=== PATIENT | male | born 1935 | race Caucasian/White ===

== ENCOUNTER 2017-05-28 06:39 | Day surgery (SDC) | payer MEDICARE, OTHER ==
[~2017-05-28 06:39] MED LIST: Lactated Ringers 1,000 ML IV SCH; Lidocaine 1%/Sod Bicarbonate in NS 8.4% 1 ML Syringe PRN; Sodium Chloride 0.9% 10 ML Syringe FLUSH PRN
[2017-05-28] MEDS ORDERED: fentaNYL 100 MCG/2 ML SDV ONE (07:19)
[2017-05-28] MEDS ORDERED: Propofol 200 MG/20 ML SDV ONE (07:19)
[2017-05-28] MEDS ORDERED: Lidocaine 1% 4 ML ONE (07:19)
[2017-05-28] MEDS ORDERED: Bupivacaine 0.25% 10 ML SDV ONE (07:25)
[2017-05-28] MEDS ORDERED: Lidocaine 1% 30 ML SDV ONE (07:26)
--- NOTE | 2017-05-28 07:39 | PCM.PREANE ---
Preanesthetic Assessment - Anesthesia/Transfusion/Family Hx Anesthesia History: Prior Anesthesia Without Reaction Family History of Anesthesia Reaction: No Transfusion History: No Prior Transfusion(s) - Review of Systems General: No Symptoms Pulmonary: Shortness of Breath (not changed. ) Cardiovascular: No Symptoms Gastrointestinal: No Symptoms Neurological: No Symptoms, Other (possible stroke in past) Other: Reports: Thyroid Problems - Physical Assessment NPO Status Date: 05/27/17 NPO Status Time: 22:15 Pulse: 57 O2 Sat by Pulse Oximetry: 100 Respiratory Rate: 16 Blood Pressure: 159/67 Temperature: 97.2 F Height: 5 ft 11 in Weight: 76.204 kg ASA Class: 3 Mental Status: Alert & Oriented x3 Airway Class: Mallampati = 1 Dentition: Reports: Dentures (top) Thyro-Mental Finger Breadths: 3 Mouth Opening Finger Breadths: 3 ROM/Head Extension: Full Lungs: Clear to Auscultation, Normal Respiratory Effort Cardiovascular: Regular Rate, Regular Rhythm - Lab Values: Laboratory Last Values MRSA (PCR) Negative 05/26/17 14:45 - Allergies Allergies/Adverse Reactions: Allergies Allergy/AdvReac Type Severity Reaction Status Date / Time No Known Allergies Allergy Verified 06/02/16 20:06 - Blood Blood Available: No - Anesthesia Plan Pre-Op Medication Ordered: Beta Madi Beta Madi: Metoprolol Med Last Dose Date: 05/28/17 Med Last Dose Time: 05:15 - Acknowledgements Anesthesia Type Planned: MAC Pt an Appropriate Candidate for the Planned Anesthesia: Yes Alternatives and Risks of Anesthesia Discussed w Pt/Guardian: Yes Pt/Guardian Understands and Agrees with Anesthesia Plan: Yes PreAnesthesia Questionnaire HEENT History: Reports: Cataract, Hard of Hearing, Impaired Vision Other HEENT History: wears glasses, has hearing aids, dental implant, history of impacted cerumen Cardiovascular History: Reports: High Cholesterol, Hypertension, CT, Stents, Other (See Below) Other Cardiovascular History: chest pain, coronary atherosclerosis Respiratory History: Reports: SOB, Other (See Below) Other Respiratory History: bronchitis, cough Gastrointestinal History: Reports: GERD, Other (See Below) Other Gastrointestinal History: abdominal pain, esophageal ulcer, dehydration Genitourinary History: Reports: None RN LONG TERM CARE History: Reports: None Other Musculoskeletal History: R hip bursitis Neurological History: Reports: Headaches, Chronic, Other (See Below) Other Neuro History: restless leg syndrome Psychiatric History: Reports: None Endocrine/Metabolic History: Reports: Hypothyroidism Hematologic History: Reports: None Immunologic History: Reports: None Oncologic (Cancer) History: Reports: None Dermatologic History: Reports: Other (See Below) Other Dermatologic History: cellulitis and abcess of face, viral warts - Infectious Disease History Infectious Disease History: Reports: Chicken Pox, Measles - Past Surgical History Head Surgeries/Procedures: Reports: None HEENT Surgical History: Reports: Cataract Surgery, Oral Surgery Cardiovascular Surgical History: Reports: Other (See Below) Other Cardiovascular Surgeries/Procedures: stent place. patient does not know location GI Surgical History: Reports: Colonoscopy, EGD Female Surgical History: Reports: None Musculoskeletal Surgical History: Reports: Arthroscopic Knee, Other (See Below) (finger) Oncologic Surgical History: Reports: None - SUBSTANCE USE Smoking Status *Q: Former Smoker Tobacco Use Within Last Twelve Months: No Second Hand Smoke Exposure: No Days Per Week of Alcohol Use: 5 Number of Drinks Per Day: 1 Total Drinks Per Week: 5 Recreational Drug Use History: No - HOME MEDS Home Medications: Home Meds Aspirin 81 mg PO DAILY 04/13/16 [History] Levothyroxine 25 mcg PO ACBREAKFAST 04/13/16 [History] Metoprolol Tartrate [Lopressor] 25 mg PO BID 04/13/16 [History] Omeprazole 20 mg PO BID 04/13/16 [History] amLODIPine [Norvasc] 2.5 mg PO DAILY 04/13/16 [History] atorvaSTATin [Lipitor] 20 mg PO BEDTIME 04/13/16 [History] Arginine 500 mg PO DAILY 05/27/17 [History] Ascorbate Calcium/Bioflavonoid [Cate-C 500 MG] 1 tab PO DAILY 05/27/17 [History ] Beta-Carotene(A) w/C & E/Min [Prosight] 1 tab PO DAILY 05/27/17 [History] Calcium Carbonate/Vitamin D3 [Calcium 600 + Vit D 400 Softgl] 1 cap PO DAILY 12/12 [History] Sammi Sinus 1 tab PO TID 05/27/17 [History] Folic Acid 1 mg PO DAILY 05/27/17 [History] Indapamide 2.5 mg PO DAILY 05/27/17 [History] Losartan [Cozaar] 100 mg PO DAILY 05/27/17 [History] Multivitamin [Multivitamins] 1 tab PO DAILY 05/27/17 [History] [place]-3/DHA/Epa/Fish Oil [[place] 3 500 Softgel] 1 cap PO DAILY 05/27/17 [History] Potassium 99 mg PO DAILY 05/27/17 [History] [place] 160 mg PO DAILY 05/27/17 [History] Ubidecarenone [Coq-10] 200 mg PO DAILY 05/27/17 [History] Vitamin E 400 unit PO DAILY 05/27/17 [History] traMADol HCl [Ultram] 50 - 100 mg PO Q8H PRN #10 tablet 05/28/17 [Rx] - CURRENT (IN HOUSE) MEDS Current Meds: Current Medications Lactated Ringer's (Ringers, Lactated) 1,000 mls @ 125 mls/hr IV ASDIRECTED LISBETH Stop: 05/28/17 23:00 Lidocaine/Sodium Bicarbonate (Buffered Lidocaine 1% In Ns 8.4%) 0.25 ml .XX ONETIME PRN PRN Reason: Prior to IV Start Stop: 05/28/17 18:00 Sodium Chloride (Saline Flush) 10 ml FLUSH ASDIRECTED PRN PRN Reason: Keep Vein Open Stop: 05/28/17 18:00 Discontinued Medications Bupivacaine HCl (Sensorcaine-Mpf 0.25%) Confirm Administered Dose 10 ml .ROUTE .STK-MED ONE Stop: 05/28/17 07:26 Fentanyl (Sublimaze) Confirm Administered Dose 100 mcg .ROUTE .STK-MED ONE Stop: 05/28/17 07:20 Lidocaine HCl (Xylocaine-Mpf 1%) Confirm Administered Dose 4 mls @ as directed .ROUTE .STK-MED ONE Stop: 05/28/17 07:20 Lidocaine HCl (Xylocaine-Mpf 1%) Confirm Administered Dose 30 ml .ROUTE .STK- MED ONE Stop: 05/28/17 07:27 Propofol (Diprivan 20 Ml) Confirm Administered Dose 200 mg .ROUTE .STK-MED ONE Stop: 05/28/17 07:20
[2017-05-28] MEDS ORDERED: Ondansetron 4 MG/2 ML SDV IVPUSH PRN (08:22)
[2017-05-28 08:57] VITALS: BP 108/55
--- NOTE | 2017-06-02 07:07 | PCM.OPNOTE ---
- General Post-Op/Procedure Note Date of Surgery/Procedure: 05/28/17 Operative Procedure(s): left ring finger a1 maximiliano release Pre Op Diagnosis: left ring finger stenosing tenosynovitis Post-Op Diagnosis: Same Anesthesia Technique: Local, MAC Primary Surgeon: Kwadwo Armstrong Anesthesia Provider: Juan Romero Security Support Analyst: Soha Shepard EBL in mLs: 5 Complications: None Condition: Good
--- NOTE | 2017-06-02 07:52 | OR ---
DATE OF OPERATION: 05/28/2017 SURGEON: Kwadwo Armstrong MD OPERATION PERFORMED: Left ring finger A1 maximiliano release. PREOPERATIVE DIAGNOSIS: Left ring finger stenosing tenosynovitis. POSTOPERATIVE DIAGNOSIS: Left ring finger stenosing tenosynovitis. ANESTHESIA: Local MAC. ANESTHESIA PROVIDER: Juan Romero CRNA IMPREGNATING MACHINE OPERATOR: Soha Shepard PA-C. ESTIMATED BLOOD LOSS: 5 mL. COMPLICATIONS: None. CONDITION: Stable. DESCRIPTION OF PROCEDURE: The patient was identified in the preop holding area. Proper site was marked and identified by the surgeon. The patient was taken back to the operating theater, where after adequate anesthesia, the patient's left upper extremity was sterilely prepped and draped in the usual sterile fashion. OR-wide time-out was performed. The patient received 2 grams of IV Ancef. At this time, the left upper extremity was exsanguinated with an Esmarch and Esmarch was used as a tourniquet on the forearm. The incision site directly over the A1 maximiliano was then anesthetized using 1% lidocaine without epinephrine and 0.25% Marcaine without epinephrine. A transverse incision was made over the A1 maximiliano. Blunt dissection was taken down to the A1 maximiliano. Ragnell retractors were placed both radially and ulnarly to protect the neurovascular bundles. [place] blade was used to make an incision in the A1 maximiliano and tenotomy scissors was used for release both proximally and distally and to make sure there was adequate release, making sure to not extend it past the MCP joint distally. At this time, it was found to be adequately released. The tendon was brought through the wound bed and did have some adhesions, which were broken up. At this time, adequate saline was irrigated through the wound. 4-0 nylon simple suture was used for closure of the skin. The patient tolerated the procedure well and was sent to PACU in a stable condition. MMODAL /[id number]
== END 2017-05-28 09:30 | disposition home or self-care (01) ==
LOC: JD.SDS 06:39
PROVIDERS: ATTEND Orthopaedic Surgery
DX: M65.342 Trigger finger, left ring finger (principal); M65.842 Other synovitis and tenosynovitis, left hand; I25.10 Atherosclerotic heart disease of native coronary artery without angina pectoris; E03.9 Hypothyroidism, unspecified; I10 Essential (primary) hypertension; K21.9 Gastro-esophageal reflux disease without esophagitis; I25.2 Old myocardial infarction; E78.00 Pure hypercholesterolemia, unspecified; Z95.5 Presence of coronary angioplasty implant and graft; Z87.891 Personal history of nicotine dependence; Z79.82 Long term (current) use of aspirin; Z79.899 Other long term (current) drug therapy
CPT/HCPCS: 26055; 87641; J3010; J7120; 01830; J2704

== ENCOUNTER 2017-12-13 06:10 | Emergency (ER) | payer MEDICARE, OTHER ==
[2017-12-13 06:18] VITALS: BP 167/79
--- NOTE | 2017-12-13 06:40 | EDM.PDOC ---
<Suhas Flores - Last Filed: 12/13/17 07:12> ED HPI GENERAL MEDICAL PROBLEM - General Chief Complaint: Respiratory Problem Stated Complaint: COUGH/RESPIRATORY ISSUES Time Seen by Provider: 12/13/17 06:23 Source of Information: Reports: Patient, Family (Son) History Limitations: Reports: No Limitations - History of Present Illness INITIAL COMMENTS - FREE TEXT/NARRATIVE: The patient states that he has had a cough productive of yellowish sputum for the past 3 days. He states that his stomach is sore, he believes from coughing. No recent chest pain or palpitations. He has had a subjective fever and feels dry. He has had shortness of breath for years, but states that Dr. Lewis says that his lungs are fine. He states that he had diarrhea last 12/06/2017. No urinary symptoms. Here in the ED, the patient is afebrile, saturating 93% on room air. - Related Data Allergies Allergy/AdvReac Type Severity Reaction Status Date / Time No Known Allergies Allergy Verified 12/13/17 06:15 Home Meds: Home Meds Aspirin 81 mg PO DAILY 04/13/16 [History] Levothyroxine 25 mcg PO ACBREAKFAST 04/13/16 [History] Metoprolol Tartrate [Lopressor] 25 mg PO BID 04/13/16 [History] Omeprazole 20 mg PO DAILY 04/13/16 [History] amLODIPine [Norvasc] 2.5 mg PO DAILY 04/13/16 [History] atorvaSTATin [Lipitor] 20 mg PO BEDTIME 04/13/16 [History] Indapamide 2.5 mg PO DAILY 05/27/17 [History] Multivitamin [Multivitamins] 1 tab PO DAILY 05/27/17 [History] [place]-3/DHA/Epa/Fish Oil [[place] 3 500 Softgel] 1 cap PO DAILY 05/27/17 [History] Past Medical History HEENT History: Reports: Cataract, Hard of Hearing, Impaired Vision Other HEENT History: wears glasses, has hearing aids, dental implant Cardiovascular History: Reports: CAD, High Cholesterol, Hypertension Gastrointestinal History: Reports: GERD Neurological History: Reports: Other (See Below) (Restless leg syndrome) Endocrine/Metabolic History: Reports: Hypothyroidism - Infectious Disease History Infectious Disease History: Reports: Chicken Pox, Measles - Past Surgical History HEENT Surgical History: Reports: Cataract Surgery, Oral Surgery Cardiovascular Surgical History: Reports: Coronary Artery Stent (x 1) GI Surgical History: Reports: Colonoscopy, EGD Musculoskeletal Surgical History: Reports: Arthroscopic Knee, Other (See Below) (Right 3rd finger ligament repair) Social & Family History - Family History Family Medical History: Noncontributory - Tobacco Use Smoking Status *Q: Never Smoker Second Hand Smoke Exposure: No - Alcohol Use Alcohol Use History: Yes Days Per Week of Alcohol Use: 5 Number of Drinks Per Day: 1 Total Drinks Per Week: 5 Alcohol Use Frequency: Socially - Recreational Drug Use Recreational Drug Use: No - Living Situation & Occupation Living situation: Reports: , with Spouse, with Family (Son, daughter-in- law) Occupation: Retired ([employer]) ED ROS GENERAL - Review of Systems Review Of Systems: ROS reveals no pertinent complaints other than HPI. ED EXAM, GENERAL - Physical Exam Exam: See Below Exam Limited By: No Limitations General Appearance: Alert, WD/WN, No Apparent Distress Eye Exam: Bilateral Eye: Normal Inspection Ears: Normal External Exam, Hearing Grossly Normal Nose: Normal Inspection, No Blood Throat/Mouth: Normal Inspection, Normal Lips, Normal Voice, No Airway Compromise Head: Atraumatic, Normocephalic Neck: Normal Inspection, Full Range of Motion Respiratory/Chest: No Respiratory Distress, Lungs Clear, Normal Breath Sounds, No Accessory Muscle Use Cardiovascular: Normal Peripheral Pulses, Regular Rate, Rhythm, No Gallop, No JVD, No Murmur, No Rub Peripheral Pulses: 4+: Radial (L), Radial (R) GI/Abdominal: Normal Bowel Sounds, Soft, Non-Tender, No Organomegaly, No Distention, No Abnormal Bruit, No Mass (Male) Exam: Deferred Rectal (Males) Exam: Deferred Back Exam: Normal Inspection, Full Range of Motion, NT Extremities: Normal Inspection, Normal Range of Motion, No Pedal Edema, Normal Capillary Refill Neurological: Alert, Oriented, Normal Cognition, No Motor/Sensory Deficits Psychiatric: Normal Affect Skin Exam: Warm, Dry, Intact, Normal Color, No Rash EKG INTERPRETATION EKG Date: 12/13/17 Time: 06:46 Rhythm: NSR Rate (Beats/Min): 67 [place]: Normal P-Wave: Present (1st degree AVB) QRS: Normal (Single PVC) ST-T: Normal QT: Normal Comparison: No Change (06/02/2016) Course - Vital Signs Last Recorded V/S: Last Vital Signs Temp 97.7 F 12/13/17 06:15 Pulse 75 12/13/17 06:15 Resp 20 12/13/17 06:15 BP 167/79 H 12/13/17 06:15 Pulse Ox 93 L 12/13/17 06:15 - Orders/Labs/Meds Orders: Active Orders 24 hr Category Date Time Status EKG Documentation Completion [RC] STAT Care 12/13/17 06:34 Active Holter Monitor 48 Hours [RC] .PRN Care 12/13/17 08:19 Ordered Chest 2V [CR] Stat Exams 12/13/17 06:34 Taken Labs: Laboratory Tests 12/13/17 12/13/17 12/13/17 Range/Units 06:40 06:40 06:40 WBC 8.19 (4.23-9.07) K/mm3 RBC 4.91 (4.63-6.08) M/mm3 Hgb 15.6 (13.7-17.5) gm/L Hct 45.7 (40.1-51.0) % MCV 93.1 H (79.0-92.2) fl MCH 31.8 (25.7-32.2) pg MCHC 34.1 (32.2-35.5) g/dl RDW Std Deviation 44.0 H (35.1-43.9) fL Plt Count 139 L (163-337) K/mm3 MPV 9.7 (9.4-12.3) fl Neutrophils % (Manual) 82 H (40-60) % Band Neutrophils % 0 (0-10) % Lymphocytes % (Manual) 11 L (20-40) % Atypical Lymphs % 0 % Monocytes % (Manual) 6 (2-10) % Eosinophils % (Manual) 1 (0.8-7.0) % Basophils % (Manual) 0 L (0.2-1.2) Platelet Estimate Adequate RBC Morph Comment Normal PT 10.9 (8.0-13.0) SECONDS INR 1.00 APTT 30 (22-36) SECONDS D-Dimer, Quantitative 0.27 (0.19-0.59) mg/L Sodium 139 (136-145) mEq/L Potassium 3.7 (3.5-5.1) mEq/L Chloride 105 (98-107) mEq/L Carbon Dioxide 23 (21-32) mEq/L Anion Gap 14.7 (5-15) BUN 19 H (7-18) mg/dL Creatinine 1.1 (0.7-1.3) mg/dL Est Cr Clr Drug Dosing 52.54 mL/min Estimated GFR (MDRD) > 60 (>60) mL/min BUN/Creatinine Ratio 17.3 (14-18) Glucose 121 H (83-115) mg/dL Calcium 10.1 (8.5-10.1) mg/dL Total Bilirubin 1.1 H (0.2-1.0) mg/dL AST 28 (15-37) U/L ALT 32 (16-63) U/L Alkaline Phosphatase 72 (46-116) U/L Troponin I < 0.017 (0.00-0.056) ng/mL NT-Pro-B Natriuret Pep (0-450) pg/mL Total Protein 6.4 (6.4-8.2) g/dl Albumin 3.5 (3.4-5.0) g/dl Globulin 2.9 gm/dL Albumin/Globulin Ratio 1.2 (1-2) 12/13/17 Range/Units 06:40 WBC (4.23-9.07) K/mm3 RBC (4.63-6.08) M/mm3 Hgb (13.7-17.5) gm/L Hct (40.1-51.0) % MCV (79.0-92.2) fl MCH (25.7-32.2) pg MCHC (32.2-35.5) g/dl RDW Std Deviation (35.1-43.9) fL Plt Count (163-337) K/mm3 MPV (9.4-12.3) fl Neutrophils % (Manual) (40-60) % Band Neutrophils % (0-10) % Lymphocytes % (Manual) (20-40) % Atypical Lymphs % % Monocytes % (Manual) (2-10) % Eosinophils % (Manual) (0.8-7.0) % Basophils % (Manual) (0.2-1.2) Platelet Estimate RBC Morph Comment PT (8.0-13.0) SECONDS INR APTT (22-36) SECONDS D-Dimer, Quantitative (0.19-0.59) mg/L Sodium (136-145) mEq/L Potassium (3.5-5.1) mEq/L Chloride (98-107) mEq/L Carbon Dioxide (21-32) mEq/L Anion Gap (5-15) BUN (7-18) mg/dL Creatinine (0.7-1.3) mg/dL Est Cr Clr Drug Dosing mL/min Estimated GFR (MDRD) (>60) mL/min BUN/Creatinine Ratio (14-18) Glucose (83-115) mg/dL Calcium (8.5-10.1) mg/dL Total Bilirubin (0.2-1.0) mg/dL AST (15-37) U/L ALT (16-63) U/L Alkaline Phosphatase (46-116) U/L Troponin I (0.00-0.056) ng/mL NT-Pro-B Natriuret Pep 2098 H (0-450) pg/mL Total Protein (6.4-8.2) g/dl Albumin (3.4-5.0) g/dl Globulin gm/dL Albumin/Globulin Ratio (1-2) - Re-Assessments/Exams Free Text/Narrative Re-Assessment/Exam: 12/13/17 07:12 Two-view chest radiograph appears to be grossly normal. Cardiac silhouette is within normal limits. No pulmonary vascular congestion. No pleural effusions. No focal infiltrate. No pneumothorax. Formal read per the Radiologist pending. 12/13/17 07:[address] Hilliard, and care of the patient turned over to him at this time, for change of shift. Departure - Departure Disposition: Home, Self-Care 01 Clinical Impression: Bronchitis - Discharge Information Referrals: Trell Lewis MD [Primary Care Provider] - 1 Week Forms: ED Department Discharge Additional Instructions: Take the medication as prescribed. Follow up with Dr Lewis in 1 week. Please return if you are worse. - My Orders Last 24 Hours: My Active Orders 12/13/17 08:19 Holter Monitor 48 Hours [RC] .PRN - Assessment/Plan Last 24 Hours: My Active Orders 12/13/17 08:19 Holter Monitor 48 Hours [RC] .PRN <Ryan Hilliard - Last Filed: 12/13/17 08:23> Course - Re-Assessments/Exams Free Text/Narrative Re-Assessment/Exam: 12/13/17 08:[address] Flores. The patient's CXR looks good. His CBC is negative. His D-dimer is negative. His CMP looks good. His troponin is negative. His BNP is elevated at 2098. His CXR shows no congestive changes and he has no edema in his legs. He will need to have that followed up with a possible echo by his doctor. He has no other signs of heart failure now. He tells me that at times he feels like his heart stops during the day. He says it happens bout 10 times per day. I have ordered a 48 hour holter monitor for that. It appears he has some bronchitis. I will give him a z-saul and something for the cough. Departure - Departure Time of Disposition: 08:25 Condition: Good
--- NOTE | 2017-12-13 13:01 | CR ---
Chest: Two views of the chest were obtained. Comparison: Prior chest x-ray of 04/13/16. Heart size is normal. Tortuous thoracic aorta is seen. Lungs are clear with no acute infiltrates. Atherosclerotic calcification also seen within the aorta. Impression: 1. Nothing acute is seen on two-view chest x-ray. Diagnostic code #2
== END 2017-12-13 08:42 | disposition home or self-care (01) ==
LOC: JD.ED 06:10
DX: J40 Bronchitis, not specified as acute or chronic (principal); E78.00 Pure hypercholesterolemia, unspecified; I10 Essential (primary) hypertension; K21.9 Gastro-esophageal reflux disease without esophagitis; E03.9 Hypothyroidism, unspecified; I25.810 Atherosclerosis of coronary artery bypass graft(s) without angina pectoris; Z95.5 Presence of coronary angioplasty implant and graft; Z79.82 Long term (current) use of aspirin; Z79.899 Other long term (current) drug therapy
CPT/HCPCS: 36415; 71046; 71046-26; 80053; 83880; 84484; 85025; 85379; 85610; 85730; 93005; 93225; 93226; 99283; 99284-25

== ENCOUNTER 2018-05-14 21:00 | Emergency (ER) | payer MEDICARE, OTHER ==
[2018-05-14 21:11] VITALS: BP 143/81
--- NOTE | 2018-05-14 21:39 | EDM.PDOC ---
<Theresa Dan M - Last Filed: 05/14/18 21:50> ED HPI GENERAL MEDICAL PROBLEM - General Chief Complaint: Skin Complaint Stated Complaint: LEFT HAND SWOLLEN BUG BITE Time Seen by Provider: 05/14/18 21:30 Source of Information: Reports: Patient History Limitations: Reports: No Limitations - History of Present Illness INITIAL COMMENTS - FREE TEXT/NARRATIVE: Patient comes in for left hand swelling following a bug bite at 1400 today. Patient recalls feeling a sharp pain and then pulling an unidentified insect off of the base of the left thumb on the armstrong aspect of the hand. Patient denies any pain at this time. His left hand began to swell in the hours following the insect bite. Denies throat swelling, SOB, wheezing, abdominal pain, diarrhea, or urticaria. 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 left dorsal hand Pain Score (Numeric/FACES): 4 - Related Data Allergies Allergy/AdvReac Type Severity Reaction Status Date / Time No Known Allergies Allergy Verified 05/14/18 21:11 Home Meds: Home Meds Aspirin 81 mg PO DAILY 04/13/16 [History] Levothyroxine 25 mcg PO ACBREAKFAST 04/13/16 [History] Metoprolol Tartrate [Lopressor] 25 mg PO BID 04/13/16 [History] Omeprazole 20 mg PO DAILY 04/13/16 [History] amLODIPine [Norvasc] 2.5 mg PO DAILY 04/13/16 [History] atorvaSTATin [Lipitor] 20 mg PO BEDTIME 04/13/16 [History] Indapamide 2.5 mg PO DAILY 05/27/17 [History] Multivitamin [Multivitamins] 1 tab PO DAILY 05/27/17 [History] [place]-3/DHA/Epa/Fish Oil [[place] 3 500 Softgel] 1 cap PO DAILY 05/27/17 [History] Past Medical History HEENT History: Reports: Cataract, Hard of Hearing, Impaired Vision Other HEENT History: wears glasses, has hearing aids, dental implant Cardiovascular History: Reports: CAD, High Cholesterol, Hypertension Other Cardiovascular History: chest pain, coronary atherosclerosis Respiratory History: Reports: Bronchitis, Recurrent, SOB, Other (See Below) Other Respiratory History: cough Gastrointestinal History: Reports: GERD Other Gastrointestinal History: abdominal pain, esophageal ulcer, dehydration Other Musculoskeletal History: R hip bursitis Neurological History: Reports: Other (See Below) (Restless leg syndrome) Other Neuro History: restless leg syndrome Endocrine/Metabolic History: Reports: Hypothyroidism Dermatologic History: Reports: Cellulitis, Other (See Below) Other Dermatologic History: cellulitis and abcess of face, viral warts - Infectious Disease History Infectious Disease History: Reports: Chicken Pox, Measles - Past Surgical History Head Surgeries/Procedures: Reports: None HEENT Surgical History: Reports: Cataract Surgery, Oral Surgery Cardiovascular Surgical History: Reports: Coronary Artery Stent GI Surgical History: Reports: Colonoscopy, EGD Musculoskeletal Surgical History: Reports: Arthroscopic Knee, Other (See Below) Other Musculoskeletal Surgeries/Procedures:: hand surgery Social & Family History - Family History Family Medical History: Noncontributory - Tobacco Use Smoking Status *Q: Never Smoker - Caffeine Use Caffeine Use: Reports: Coffee - Recreational Drug Use Recreational Drug Use: No - Living Situation & Occupation Living situation: Reports: , with Spouse, with Family (Son, daughter-in- law) Occupation: Retired ([employer]) ED ROS GENERAL - Review of Systems Review Of Systems: See Below Constitutional: Reports: No Symptoms HEENT: Denies: Throat Swelling Respiratory: Denies: Shortness of Breath, Wheezing, Cough Cardiovascular: Denies: Chest Pain, Edema, Lightheadedness, Syncope GI/Abdominal: Denies: Abdominal Pain Skin: Denies: Mottled, Pallor, Pruritis, Rash, Change in Color, Lesions, Lumps, Urticaria Neurological: Denies: Confusion, Dizziness, Numbness, Paresthesia, Tingling ED EXAM, SKIN/RASH Exam: See Below Exam Limited By: No Limitations General Appearance: Alert, WD/WN, No Apparent Distress Respiratory/Chest: No Respiratory Distress Cardiovascular: Normal Peripheral Pulses, Regular Rate, Rhythm Skin: Warm, Dry, Intact, Normal Color, No Rash Location, Skin: Upper Extremity, Left (Left hand swelling primarily along the dorsum of the hand but also involving the digits as well. Not tender to palpation. Neurovascularly intact with 2+ radial pulses bilaterally) Characteristics: No: Urticarial, Erythematous Associated features: Warmth, Swelling, Inflammation. No: Tenderness, Induration Course - Vital Signs Last Recorded V/S: Last Vital Signs Temp 97.3 F 05/14/18 21:03 Pulse 69 05/14/18 21:03 Resp 18 05/14/18 21:03 BP 143/81 H 05/14/18 21:03 Pulse Ox 95 05/14/18 21:03 Departure - Departure Disposition: Home, Self-Care 01 Clinical Impression: Hand swelling, Bug bite - Discharge Information Instructions: Insect Bite, Adult, [id number] Referrals: Trell Lewis MD [Primary Care Provider] - Forms: ED Department Discharge Additional Instructions: doxycycline 100mg caps si cap PO bid x 7 days. #14 given through [facility] Doxycycline 1 cap Twice a day for 7 days. This medication can cause photosensitivity. Recommend making sure you are wearing sunscreen when you are out in the sun or voiding if at all possible. Recommend icing the hand 3 or 4 times a day for about 20 minutes. Elevate, above the level of heart to help reduce the swelling. Recommend Benadryl 25 mg 2 or 3 times a day to help with swelling and itching. Follow-up with Dr. Lewis Thursday or Thursday for symptoms have not much improved. Please return to the ER if your symptoms change or worsen. <Adrianne Jorge - Last Filed: 05/15/18 11:06> ED HPI GENERAL MEDICAL PROBLEM - History of Present Illness INITIAL COMMENTS - FREE TEXT/NARRATIVE: I have seen the patient and agree with the HPI as documented by NORA Leyva. Patient is right handed. ED EXAM, SKIN/RASH Extremities: Other (swelling present to the left hand; no erythema noted; increased warmth to the left hand) Neurological: Alert, Oriented, Normal Cognition Psychiatric: Normal Affect, Normal Mood Skin: No: Wound/Incision (no obvious wound found) Course - Re-Assessments/Exams Free Text/Narrative Re-Assessment/Exam: 05/14/18 21:45 I have seen eh patient and agree with the HPI, ROS and PE as documented by NORA Leyva. Will stat the patient on doxycycline to cover if this is an early infection. Farrell more likely to be a local reaction. Patient unable to take NSAIDs. ay take a few benadryl as needed for itching and swelling. Discharge instructions as documented. Departure - Departure Time of Disposition: 21:45 Condition: Fair - Discharge Information *PRESCRIPTION DRUG MONITORING PROGRAM REVIEWED*: No *COPY OF PRESCRIPTION DRUG MONITORING REPORT IN PATIENT JULIA: No
== END 2018-05-14 21:55 | disposition home or self-care (01) ==
LOC: JD.ED 21:00
DX: S60.562A Insect bite (nonvenomous) of left hand, initial encounter (principal); I10 Essential (primary) hypertension; E78.00 Pure hypercholesterolemia, unspecified; I25.10 Atherosclerotic heart disease of native coronary artery without angina pectoris; K21.9 Gastro-esophageal reflux disease without esophagitis; Z79.82 Long term (current) use of aspirin; Z79.899 Other long term (current) drug therapy; W57.XXXA Bitten or stung by nonvenomous insect and other nonvenomous arthropods, initial encounter
CPT/HCPCS: 99282

== ENCOUNTER 2020-10-27 09:26 | Emergency (ER) | payer MEDICARE, OTHER ==
[2020-10-27 10:00] VITALS: PULSE 86
[2020-10-27] MEDS ORDERED: Sodium Chloride 0.9% 10 ML Syringe FLUSH PRN (10:14)
--- NOTE | 2020-10-27 10:23 | EDM.PDOC ---
<Pamela Rosario - Last Filed: 10/27/20 15:48> ED HPI GENERAL MEDICAL PROBLEM - General Chief Complaint: Gastrointestinal Problem Stated Complaint: COVID SYMPTOMS Time Seen by Provider: 10/27/20 10:05 Source of Information: Reports: Patient History Limitations: Reports: No Limitations, Other (Admit notes temp 96.0, pulse 86, respiratory rate 12, blood pressure 182/92, pulse ox 97% on room air.) - History of Present Illness INITIAL COMMENTS - FREE TEXT/NARRATIVE: 85-year-old male presents to the emergency department with complaints of not feeling well since 20 October which was 7 days ago. Patient states that starting on that day he started to have a bit of a cough and his stomach felt woozy. States that since then he has had no appetite not wanting to eat or drink much of anything, states that he has had a couple of episodes of watery stools but denies constipation. Denies nausea or vomiting but states he has had a couple of episodes of dry heaving. Has not had fever or chills. Of note, he does state that he has got an appointment next week with a drafting supervisor in regards to episodes of shortness of breath. Onset: Gradual Treatments RESEARCH PHYSICIST: Reports: Acetaminophen Lower Mid-Anterior Abdominal Pain Score (Numeric/FACES): 10 - Related Data Allergies Allergy/AdvReac Type Severity Reaction Status Date / Time No Known Allergies Allergy Verified 10/27/20 10:00 Home Meds: Home Meds Levothyroxine 25 mcg PO ACBREAKFAST 04/13/16 [History] Metoprolol Tartrate [Lopressor] 25 mg PO BID 04/13/16 [History] Omeprazole 20 mg PO DAILY 04/13/16 [History] amLODIPine [Norvasc] 2.5 mg PO DAILY 04/13/16 [History] atorvaSTATin [Lipitor] 20 mg PO BEDTIME 04/13/16 [History] Indapamide 2.5 mg PO DAILY 05/27/17 [History] Multivitamin [Multivitamins] 1 tab PO DAILY 05/27/17 [History] [place]-3/DHA/Epa/Fish Oil [[place] 3 500 Softgel] 1 cap PO DAILY 05/27/17 [History] Ondansetron [Zofran ODT] 4 mg PO Q6H PRN #20 tab.dis 10/27/20 [Rx] Past Medical History HEENT History: Reports: Cataract, Hard of Hearing, Impaired Vision Other HEENT History: wears glasses, has hearing aids, dental implant Cardiovascular History: Reports: CAD, High Cholesterol, Hypertension Other Cardiovascular History: chest pain, coronary atherosclerosis Respiratory History: Reports: Bronchitis, Recurrent, SOB, Other (See Below) Other Respiratory History: cough Gastrointestinal History: Reports: GERD Other Gastrointestinal History: abdominal pain, esophageal ulcer, dehydration Other Musculoskeletal History: R hip bursitis Neurological History: Reports: Other (See Below) Other Neuro History: restless leg syndrome Endocrine/Metabolic History: Reports: Hypothyroidism Dermatologic History: Reports: Cellulitis, Other (See Below) Other Dermatologic History: cellulitis and abcess of face, viral warts - Infectious Disease History Infectious Disease History: Reports: Chicken Pox, Measles - Past Surgical History Head Surgeries/Procedures: Reports: None HEENT Surgical History: Reports: Cataract Surgery, Oral Surgery Cardiovascular Surgical History: Reports: Coronary Artery Stent Other Cardiovascular Surgeries/Procedures: stent place. patient does not know location GI Surgical History: Reports: Colonoscopy, EGD Musculoskeletal Surgical History: Reports: Arthroscopic Knee, Other (See Below) Other Musculoskeletal Surgeries/Procedures:: hand surgery Oncologic Surgical History: Reports: None Social & Family History - Family History Family Medical History: No Pertinent Family History - Tobacco Use Tobacco Use Status *Q: Never Tobacco User Second Hand Smoke Exposure: No - Caffeine Use Caffeine Use: Reports: Coffee - Recreational Drug Use Recreational Drug Use: No - Living Situation & Occupation Living situation: Reports: , with Spouse, with Family (Son, [id number]) Occupation: Retired ([employer]) ED ROS GENERAL - Review of Systems Review Of Systems: See Below Constitutional: Reports: Malaise, Weakness, Fatigue, Decreased Appetite. Denies: Fever, Chills HEENT: Reports: No Symptoms, Glasses Respiratory: Reports: Shortness of Breath (Intermittent), Cough. Denies: Wheezing, Pleuritic Chest Pain, Sputum Cardiovascular: Reports: Lightheadedness. Denies: Chest Pain, Dyspnea on Exertion, Edema, Orthopnea, Palpitations, Syncope Endocrine: Reports: No Symptoms GI/Abdominal: Reports: Abdominal Pain, Diarrhea, Decreased Appetite, Nausea. Denies: Constipation, Distension, Vomiting : Reports: No Symptoms Musculoskeletal: Reports: No Symptoms Skin: Reports: No Symptoms Neurological: Reports: No Symptoms Psychiatric: Reports: No Symptoms Hematologic/Lymphatic: Reports: No Symptoms Immunologic: Reports: No Symptoms ED EXAM, GENERAL - Physical Exam Exam: See Below Exam Limited By: No Limitations General Appearance: Alert, WD/WN, No Apparent Distress Eye Exam: Bilateral Eye: PERRL Ears: Hearing Loss Nose: Normal Inspection Throat/Mouth: Normal Voice, No Airway Compromise Head: Atraumatic, Normocephalic Neck: Normal Inspection, Supple, Non-Tender, Full Range of Motion Respiratory/Chest: No Respiratory Distress, Lungs Clear, Normal Breath Sounds, No Accessory Muscle Use, Chest Non-Tender Cardiovascular: Normal Peripheral Pulses, Regular Rate, Rhythm, No Edema, No Murmur GI/Abdominal: No Distention, Tender, Abnormal Bowel Sounds (hypoactive). No: Distended, Guarding, Rigid (Male) Exam: Deferred Rectal (Males) Exam: Deferred Back Exam: Normal Inspection, Full Range of Motion Extremities: Normal Inspection, Normal Range of Motion, Non-Tender, No Pedal Des ma, Normal Capillary Refill Neurological: Alert, Oriented, Normal Cognition Psychiatric: Normal Affect, Normal Mood Skin Exam: Warm, Dry, Intact, Normal Color, No Rash Lymphatic: No Adenopathy #1 Interpretation EKG Date: 10/27/20 Time: 10:28 Rhythm: NSR Rate (Beats/Min): 82 Elbe: Normal P-Wave: Present QRS: LBBB Comparison: NA - No Prior EKG EKG Interpretation Comments: Per Dr. Heller, EKG interpretation: Sinus rhythm with a first-degree AV block and left bundle branch block concerned with ST depression in lead II but patient denies chest pain. Course - Vital Signs Text/Narrative:: 85-year-old male presents to the emergency department with generalized vague complaints. States he started not feeling well 20 October and since then has had not had much of an appetite and is not able to eat or drink, states he has been coughing and has abdominal pain due to coughing however with palpation of the abdomen he is tender in all quadrants. Denies difficulties with voiding. States he has had a couple of liquid stools since the . Denies issue with constipation. Has denied fever chills and has not had a fever since being in the emergency department. I have ordered a CBC, CMP, magnesium, CRP, urinalysis, chest x-ray, and flat and upright of the abdomen. I also ordered a Covid test for this patient. Patient is likely dehydrated so I will order some IV fluids as well. - Radiology Interpretation Free Text/Narrative:: Portable AP of the chest radiology interpretation: 1. Possible area of atelectasis within the left lung base. 2. Nothing acute is otherwise seen. Upright and supine view of the abdomen was obtained. Interpretation Per radiologist: Calcification is noted within the left upper abdomen which is most likely vascular in etiology. Bowel gas pattern appears normal. Slight degenerative changes noted within the spine. No additional abnormality is appreciated. Nothing acute is appreciated. - Re-Assessments/Exams Free Text/Narrative Re-Assessment/Exam: 10/27/20 11:17 Lab calls and reveals that the patient's troponin is 0.103. The patient denies any complaints of chest pain or discomfort. I have ordered a repeat of the troponin level 3 hours from initial draw. 10/27/20 11:52 Labs reveal a WBC 6.25, hemoglobin 18, hematocrit 52.5, potassium 3.4, BUN 38, creatinine 1.7, GFR 38, glucose 152, magnesium 1.8, total bili 1.2, AST 39 ALT 42, C-reactive protein 0.5 Urinalysis reveals urine protein 1+, urine occult blood trace intact, urine nitrite negative, urine leuk esterase negative, moderate sediment. 10/27/20 13:06 The patient's Covid test returns as positive for Covid. 10/27/20 13:18 The patient's positive Covid test likely explains the elevated troponin due to inflammatory response and coagulopathies. I have ordered ferritin, PT/INR, PTT, LDH, D-dimer and proBNP. 10/27/20 14:49 Patient's repeat troponin 0 0.137. I discussed the patient's case with the motorcycle riding instructor on-call Dr. 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 He does not feel that the elevated troponins are due to cardiac events and suspect they are due to the Covid. Patient continues to deny any chest pain or shortness of breath while in the emergency department. Patient is a candidate for Bamlanivimad. I discussed this with the patient and he is agreeable to receiving this treatment. I spoke with the patient to provide information about Bamlanivimad. I offered him the patient caregiver SHANNEN Royalimakristian act sheet to read and review. I stated the drug has been approved by an emergency use authorization process and has not fully been FDA reviewed or approved. The patient meets the EUA requirements. I discussed there are other potential treatment options that are currently not FDA approved to treat COVID- 19. Offered opportunity to ask questions and all questions were answered. The patient voiced understanding and agreed to proceed with treatment for himself. I also updated the patient's son regarding plan of care per the patient's request. 10/27/20 15:56 D-dimer is 0.64, lactic acid 1.7, ferritin 1583, total bilirubin 1.2, AST 39, ALT 42, LDH 223, proBNP 2972, these elevated lab values are all indicative of Covid inflammatory response. And O2 saturations are 97% on room air. 10/27/20 15:58 Departure - Departure Disposition: Home, Self-Care 01 Condition: Fair Clinical Impression: COVID-19 - Discharge Information Prescriptions: Ondansetron [Zofran ODT] 4 mg PO Q6H PRN #20 tab.dis PRN Reason: Nausea/Vomiting Instructions: COVID-19 Frequently Asked Questions, COVID-19: How to Protect Yourself and Others - CDC Referrals: PCP,None [Primary Care Provider] - Forms: ED Department Discharge Additional Instructions: You were seen in the emergency department today with complaints of general fatigue, nausea, abdominal pain and cough with diarrhea. Lab work reveals that you have Covid. Your cardiac lab work was slightly elevated however I did discuss this with Dr. Austin and he confirms that this elevation is likely due to the Covid virus. You also received Bamlanivimad is an antiviral medication to shorten the severity and duration of your Covid symptoms. Did I have sent your prescription of Zofran, and antinausea medication, to your pharmacy. You can take this medication and place it under your tongue when you start to feel nauseated. Wait about 30 minutes and then attempt to eat or drink. Try to stay hydrated over the next several days with the use of Gatorade or Pedialyte. Also eat small frequent meals. Should your condition worsen or change please return to the emergency department Sepsis Event Note (ED) - Evaluation Sepsis Screening Result: No Definite Risk <Ivonne Brothers V - Last Filed: 10/27/20 17:38> Course - Vital Signs Last Recorded V/S: Last Vital Signs Temp 96.0 F L 10/27/20 09:48 Pulse 86 10/27/20 09:48 Resp 12 10/27/20 09:48 BP 182/92 H 10/27/20 09:48 Pulse Ox 97 10/27/20 09:48 - Orders/Labs/Meds Orders: Active Orders 24 hr Category Date Time Status EKG Documentation Completion [RC] STAT Care 10/27/20 10:14 Active Vital Signs [RC] Q15M Care 10/27/20 14:42 Active Famotidine [Pepcid] Med 10/27/20 14:42 Active 20 mg IVPUSH ONETIME PRN Sodium Chloride 0.9% [Normal Saline] 1,000 ml Med 10/27/20 10:30 Active IV ASDIRECTED Sodium Chloride 0.9% [Saline Flush] Med 10/27/20 10:14 Active 10 ml FLUSH ASDIRECTED PRN Sodium Chloride 0.9% [Saline Flush] Med 10/27/20 14:45 Active 30 ml FLUSH ASDIRECTED diphenhydrAMINE [Benadryl] Med 10/27/20 14:42 Active 50 mg IVPUSH ONETIME PRN methylPREDNISolone Sod Succ [Solu-MEDROL] Med 10/27/20 14:42 Active 125 mg IVPUSH ONETIME PRN Saline Lock Insert [OM.PC] Stat Oth 10/27/20 10:14 Ordered Medication Orders Diphenhydramine HCl (Benadryl) 50 mg IVPUSH ONETIME PRN PRN Reason: hypersensitivity reaction Famotidine (Pepcid) 20 mg IVPUSH ONETIME PRN PRN Reason: hypersensitivity reaction Sodium Chloride (Normal Saline) 1,000 mls @ 150 mls/hr IV ASDIRECTED LISBETH Last Admin: 10/27/20 10:32 Dose: 150 mls/hr Documented by: CRISTA Methylprednisolone Sodium Succinate (Solu-Medrol) 125 mg IVPUSH ONETIME PRN PRN Reason: hypersensitivity reaction Sodium Chloride (Saline Flush) 10 ml FLUSH ASDIRECTED PRN PRN Reason: Keep Vein Open Last Admin: 10/27/20 10:34 Dose: 10 ml Documented by: CRISTA Sodium Chloride (Saline Flush) 30 ml FLUSH ASDIRECTED [facility] Labs: Laboratory Tests 10/27/20 10/27/20 10/27/20 Range/Units 10:20 10:20 10:20 WBC 6.25 (4.23-9.07) K/mm3 RBC 5.74 (4.63-6.08) M/mm3 Hgb 18.0 H (13.7-17.5) gm/dl Hct 52.5 H (40.1-51.0) % MCV 91.5 (79.0-92.2) fl MCH 31.4 (25.7-32.2) pg MCHC 34.3 (32.2-35.5) g/dl RDW Std Deviation 42.7 (35.1-43.9) fL Plt Count 164 (163-337) K/mm3 MPV 10.1 (9.4-12.3) fl Neut % (Auto) 79.1 H (34.0-67.9) % Lymph % (Auto) 11.2 L (21.8-53.1) % [place] % (Auto) 9.1 (5.3-12.2) % Eos % (Auto) 0.2 L (0.8-7.0) Baso % (Auto) 0.2 (0.1-1.2) % Neut # (Auto) 4.95 (1.78-5.38) K/mm3 Lymph # (Auto) 0.70 L (1.32-3.57) K/mm3 [place] # (Auto) 0.57 (0.30-0.82) K/mm3 Eos # (Auto) 0.01 L (0.04-0.54) K/mm3 Baso # (Auto) 0.01 (0.01-0.08) K/mm3 PT (9.7-12.0) SECONDS INR APTT (21.7-31.4) SECONDS D-Dimer, Quantitative (0.19-0.50) mg/L Sodium 139 (136-145) mEq/L Potassium 3.4 L (3.5-5.1) mEq/L Chloride 100 (98-107) mEq/L Carbon Dioxide 30 (21-32) mEq/L Anion Gap 12.4 (5-15) BUN 38 H (7-18) mg/dL Creatinine 1.7 H (0.7-1.3) mg/dL Est Cr Clr Drug Dosing 31.02 mL/min Estimated GFR (MDRD) 38 (>60) mL/min BUN/Creatinine Ratio 22.4 H (14-18) Glucose 152 H (83-115) mg/dL Lactic Acid (0.4-2.0) mmol/L Calcium 11.1 H (8.5-10.1) mg/dL Magnesium 1.8 (1.8-2.4) mg/dl Ferritin (26-388) ng/ml Total Bilirubin 1.2 H (0.2-1.0) mg/dL AST 39 H (15-37) U/L ALT 42 (16-63) U/L Alkaline Phosphatase 82 (46-116) U/L Lactate Dehydrogenase (85-227) U/L Troponin I 0.103 H* (0.00-0.056) ng/mL C-Reactive Protein 0.5 (<1.0) mg/dL NT-Pro-B Natriuret Pep (0-450) pg/mL Total Protein 7.3 (6.4-8.2) g/dl Albumin 3.7 (3.4-5.0) g/dl Globulin 3.6 gm/dL Albumin/Globulin Ratio 1.0 (1-2) Urine Color (Yellow) Urine Appearance (Clear) Urine pH (5.0-8.0) Ur Specific [place] (1.005-1.030) Urine Protein (Negative) Urine Glucose (UA) (Negative) Urine Ketones (Negative) Urine Occult Blood (Negative) Urine Nitrite (Negative) Urine Bilirubin (Negative) Urine Urobilinogen (0.2-1.0) Ur Leukocyte Esterase (Negative) U Hyaline Cast (Auto) (0-5) /lpf Urine RBC (0-5) /hpf Urine WBC (0-5) /hpf Ur Squamous Epith Cells (0-5) /hpf Amorphous Sediment (NOT SEEN) /hpf Urine Bacteria (FEW) /hpf Urine Mucus (FEW) /hpf SARS-CoV-2 RNA (SHAHEEN) (NEGATIVE) 10/27/20 10/27/20 10/27/20 Range/Units 10:20 10:20 11:10 WBC (4.23-9.07) K/mm3 RBC (4.63-6.08) M/mm3 Hgb (13.7-17.5) gm/dl Hct (40.1-51.0) % MCV (79.0-92.2) fl MCH (25.7-32.2) pg MCHC (32.2-35.5) g/dl RDW Std Deviation (35.1-43.9) fL Plt Count (163-337) K/mm3 MPV (9.4-12.3) fl Neut % (Auto) (34.0-67.9) % Lymph % (Auto) (21.8-53.1) % [place] % (Auto) (5.3-12.2) % Eos % (Auto) (0.8-7.0) Baso % (Auto) (0.1-1.2) % Neut # (Auto) (1.78-5.38) K/mm3 Lymph # (Auto) (1.32-3.57) K/mm3 [place] # (Auto) (0.30-0.82) K/mm3 Eos # (Auto) (0.04-0.54) K/mm3 Baso # (Auto) (0.01-0.08) K/mm3 PT 11.4 (9.7-12.0) SECONDS INR 1.07 APTT 28.8 (21.7-31.4) SECONDS D-Dimer, Quantitative 0.64 H (0.19-0.50) mg/L Sodium (136-145) mEq/L Potassium (3.5-5.1) mEq/L Chloride (98-107) mEq/L Carbon Dioxide (21-32) mEq/L Anion Gap (5-15) BUN (7-18) mg/dL Creatinine (0.7-1.3) mg/dL Est Cr Clr Drug Dosing mL/min Estimated GFR (MDRD) (>60) mL/min BUN/Creatinine Ratio (14-18) Glucose (83-115) mg/dL Lactic Acid (0.4-2.0) mmol/L Calcium (8.5-10.1) mg/dL Magnesium (1.8-2.4) mg/dl Ferritin 1583 H (26-388) ng/ml Total Bilirubin (0.2-1.0) mg/dL AST (15-37) U/L ALT (16-63) U/L Alkaline Phosphatase (46-116) U/L Lactate Dehydrogenase (85-227) U/L Troponin I (0.00-0.056) ng/mL C-Reactive Protein (<1.0) mg/dL NT-Pro-B Natriuret Pep (0-450) pg/mL Total Protein (6.4-8.2) g/dl Albumin (3.4-5.0) g/dl Globulin gm/dL Albumin/Globulin Ratio (1-2) Urine Color (Yellow) Urine Appearance (Clear) Urine pH (5.0-8.0) Ur Specific [place] (1.005-1.030) Urine Protein (Negative) Urine Glucose (UA) (Negative) Urine Ketones (Negative) Urine Occult Blood (Negative) Urine Nitrite (Negative) Urine Bilirubin (Negative) Urine Urobilinogen (0.2-1.0) Ur Leukocyte Esterase (Negative) U Hyaline Cast (Auto) (0-5) /lpf Urine RBC (0-5) /hpf Urine WBC (0-5) /hpf Ur Squamous Epith Cells (0-5) /hpf Amorphous Sediment (NOT SEEN) /hpf Urine Bacteria (FEW) /hpf Urine Mucus (FEW) /hpf SARS-CoV-2 RNA (SHAHEEN) Positive H (NEGATIVE) 10/27/20 10/27/20 10/27/20 Range/Units 11:15 13:45 13:45 WBC (4.23-9.07) K/mm3 RBC (4.63-6.08) M/mm3 Hgb (13.7-17.5) gm/dl Hct (40.1-51.0) % MCV (79.0-92.2) fl MCH (25.7-32.2) pg MCHC (32.2-35.5) g/dl RDW Std Deviation (35.1-43.9) fL Plt Count (163-337) K/mm3 MPV (9.4-12.3) fl Neut % (Auto) (34.0-67.9) % Lymph % (Auto) (21.8-53.1) % [place] % (Auto) (5.3-12.2) % Eos % (Auto) (0.8-7.0) Baso % (Auto) (0.1-1.2) % Neut # (Auto) (1.78-5.38) K/mm3 Lymph # (Auto) (1.32-3.57) K/mm3 [place] # (Auto) (0.30-0.82) K/mm3 Eos # (Auto) (0.04-0.54) K/mm3 Baso # (Auto) (0.01-0.08) K/mm3 PT (9.7-12.0) SECONDS INR APTT (21.7-31.4) SECONDS D-Dimer, Quantitative (0.19-0.50) mg/L Sodium (136-145) mEq/L Potassium (3.5-5.1) mEq/L Chloride (98-107) mEq/L Carbon Dioxide (21-32) mEq/L Anion Gap (5-15) BUN (7-18) mg/dL Creatinine (0.7-1.3) mg/dL Est Cr Clr Drug Dosing mL/min Estimated GFR (MDRD) (>60) mL/min BUN/Creatinine Ratio (14-18) Glucose (83-115) mg/dL Lactic Acid (0.4-2.0) mmol/L Calcium (8.5-10.1) mg/dL Magnesium (1.8-2.4) mg/dl Ferritin (26-388) ng/ml Total Bilirubin (0.2-1.0) mg/dL AST (15-37) U/L ALT (16-63) U/L Alkaline Phosphatase (46-116) U/L Lactate Dehydrogenase 223 (85-227) U/L Troponin I 0.137 H* (0.00-0.056) ng/mL C-Reactive Protein (<1.0) mg/dL NT-Pro-B Natriuret Pep 2972 H (0-450) pg/mL Total Protein (6.4-8.2) g/dl Albumin (3.4-5.0) g/dl Globulin gm/dL Albumin/Globulin Ratio (1-2) Urine Color Yellow (Yellow) Urine Appearance Clear (Clear) Urine pH 6.0 (5.0-8.0) Ur Specific [place] 1.025 (1.005-1.030) Urine Protein 1+ H (Negative) Urine Glucose (UA) Negative (Negative) Urine Ketones Negative (Negative) Urine Occult Blood Trace-intact H (Negative) Urine Nitrite Negative (Negative) Urine Bilirubin Negative (Negative) Urine Urobilinogen 0.2 (0.2-1.0) Ur Leukocyte Esterase Negative (Negative) U Hyaline Cast (Auto) 0-5 (0-5) /lpf Urine RBC 5-10 H (0-5) /hpf Urine WBC 0-5 (0-5) /hpf Ur Squamous Epith Cells 0-5 (0-5) /hpf Amorphous Sediment Moderate H (NOT SEEN) /hpf Urine Bacteria Few (FEW) /hpf Urine Mucus Few (FEW) /hpf SARS-CoV-2 RNA (SHAHEEN) (NEGATIVE) 10/27/20 Range/Units 13:45 WBC (4.23-9.07) K/mm3 RBC (4.63-6.08) M/mm3 Hgb (13.7-17.5) gm/dl Hct (40.1-51.0) % MCV (79.0-92.2) fl MCH (25.7-32.2) pg MCHC (32.2-35.5) g/dl RDW Std Deviation (35.1-43.9) fL Plt Count (163-337) K/mm3 MPV (9.4-12.3) fl Neut % (Auto) (34.0-67.9) % Lymph % (Auto) (21.8-53.1) % [place] % (Auto) (5.3-12.2) % Eos % (Auto) (0.8-7.0) Baso % (Auto) (0.1-1.2) % Neut # (Auto) (1.78-5.38) K/mm3 Lymph # (Auto) (1.32-3.57) K/mm3 [place] # (Auto) (0.30-0.82) K/mm3 Eos # (Auto) (0.04-0.54) K/mm3 Baso # (Auto) (0.01-0.08) K/mm3 PT (9.7-12.0) SECONDS INR APTT (21.7-31.4) SECONDS D-Dimer, Quantitative (0.19-0.50) mg/L Sodium (136-145) mEq/L Potassium (3.5-5.1) mEq/L Chloride (98-107) mEq/L Carbon Dioxide (21-32) mEq/L Anion Gap (5-15) BUN (7-18) mg/dL Creatinine (0.7-1.3) mg/dL Est Cr Clr Drug Dosing mL/min Estimated GFR (MDRD) (>60) mL/min BUN/Creatinine Ratio (14-18) Glucose (83-115) mg/dL Lactic Acid 1.7 (0.4-2.0) mmol/L Calcium (8.5-10.1) mg/dL Magnesium (1.8-2.4) mg/dl Ferritin (26-388) ng/ml Total Bilirubin (0.2-1.0) mg/dL AST (15-37) U/L ALT (16-63) U/L Alkaline Phosphatase (46-116) U/L Lactate Dehydrogenase (85-227) U/L Troponin I (0.00-0.056) ng/mL C-Reactive Protein (<1.0) mg/dL NT-Pro-B Natriuret Pep (0-450) pg/mL Total Protein (6.4-8.2) g/dl Albumin (3.4-5.0) g/dl Globulin gm/dL Albumin/Globulin Ratio (1-2) Urine Color (Yellow) Urine Appearance (Clear) Urine pH (5.0-8.0) Ur Specific [place] (1.005-1.030) Urine Protein (Negative) Urine Glucose (UA) (Negative) Urine Ketones (Negative) Urine Occult Blood (Negative) Urine Nitrite (Negative) Urine Bilirubin (Negative) Urine Urobilinogen (0.2-1.0) Ur Leukocyte Esterase (Negative) U Hyaline Cast (Auto) (0-5) /lpf Urine RBC (0-5) /hpf Urine WBC (0-5) /hpf Ur Squamous Epith Cells (0-5) /hpf Amorphous Sediment (NOT SEEN) /hpf Urine Bacteria (FEW) /hpf Urine Mucus (FEW) /hpf SARS-CoV-2 RNA (SHAHEEN) (NEGATIVE) Meds: Medications Generic Name Dose Route Start Last Admin Trade Name Freq PRN Reason Stop Dose Admin Diphenhydramine HCl 50 mg 10/27/20 14:42 Benadryl IVPUSH ONETIME PRN hypersensitivity reaction Famotidine 20 mg 10/27/20 14:42 Pepcid IVPUSH ONETIME PRN hypersensitivity reaction Sodium Chloride 1,000 mls @ 150 mls/hr 10/27/20 10:30 10/27/20 10:32 Normal Saline IV 150 mls/hr ASDIRECTED LISBETH Administration Methylprednisolone Sodium Succinate 125 mg 10/27/20 14:42 Solu-Medrol IVPUSH ONETIME PRN hypersensitivity reaction Sodium Chloride 10 ml 10/27/20 10:14 10/27/20 10:34 Saline Flush FLUSH 10 ml ASDIRECTED PRN Administration Keep Vein Open Sodium Chloride 30 ml 10/27/20 14:45 Saline Flush FLUSH ASDIRECTED LISBETH Discontinued Medications Generic Name Dose Route Start Last Admin Trade Name Freq PRN Reason Stop Dose Admin Epinephrine HCl 0.3 mg 10/27/20 14:42 Adrenalin IM 10/27/20 14:43 ONETIME ONE Bamlanivimab 700 mg/ Sodium 270 mls @ 270 mls/hr 10/27/20 14:42 10/27/20 15:38 Chloride IV 10/27/20 14:43 270 mls/hr ONETIME ONE Administration Protocol Sodium Chloride Confirm 10/27/20 15:24 Normal Saline Administered 10/27/20 15:25 Dose 250 mls @ as directed .ROUTE .STK-MED ONE Ondansetron HCl 4 mg 10/27/20 11:23 10/27/20 11:45 Zofran IVPUSH 10/27/20 11:24 4 mg ONETIME ONE Administration - Re-Assessments/Exams Free Text/Narrative Re-Assessment/Exam: 10/27/20 17:26 Care assumed from Pamela Whyte for patient for discharge purposes. Patient will be discharged at 17:38, he tolerated the bamlanivimab treatment well is having no lingering side effects. Departure - Departure Time of Disposition: 17:38 Sepsis Event Note (ED) - Focused Exam Vital Signs: Vital Signs Temp Pulse Resp BP Pulse Ox 10/27/20 09:48 96.0 F L 86 12 182/92 H 97
[2020-10-27] MEDS ORDERED: Sodium Chloride 0.9% 1,000 ML IV SCH (10:30)
--- NOTE | 2020-10-27 11:14 | CR ---
Chest: Portable view of the chest was obtained. Comparison: Prior chest x-ray of 10/02/18. Heart size is normal. Tortuous thoracic aorta is seen. Slight density within the left lung base is seen most likely representing atelectasis. No definite acute findings otherwise is seen within the chest. Impression: 1. Possible area of atelectasis within the left lung base. 2. Nothing acute is otherwise seen. Diagnostic code #2
[2020-10-27] MEDS ORDERED: Ondansetron 4 MG/2 ML SDV IVPUSH ONE (11:23)
[2020-10-27] MEDS ORDERED: Famotidine 20 MG/2 ML SDV IVPUSH PRN (14:42)
[2020-10-27] MEDS ORDERED: EPINEPHrine 1 MG/ML SDV IM ONE (14:42)
[2020-10-27] MEDS ORDERED: methylPREDNISolone Sodium Succinate 125 MG/2 ML SDV IVPUSH PRN (14:42)
[2020-10-27] MEDS ORDERED: diphenhydrAMINE 50 MG/ML SDV IVPUSH PRN (14:42)
[2020-10-27] MEDS ORDERED: Sodium Chloride 0.9% 10 ML Syringe FLUSH SCH (14:45)
--- NOTE | 2020-10-27 15:13 | CR ---
Abdomen: Upright and supine view of the abdomen was obtained. Comparison: No prior abdominal x-ray is available. Calcification is noted within the left upper abdomen which is most likely vascular in etiology. Bowel gas pattern appears normal. Slight degenerative change is noted within the spine. No additional abnormality is appreciated. Impression: 1. Findings believed to be incidental as noted above. 2. Nothing acute is appreciated. Diagnostic code #2
[2020-10-27] MEDS ORDERED: Sodium Chloride 0.9% 250 ML ONE (15:24)
[2020-10-27 20:15] VITALS: BP 122/81
== END 2020-10-27 18:00 | disposition home or self-care (01) ==
LOC: JD.ED 09:26
DX: U07.1 COVID-19 (principal); I25.10 Atherosclerotic heart disease of native coronary artery without angina pectoris; E78.00 Pure hypercholesterolemia, unspecified; I10 Essential (primary) hypertension; K21.9 Gastro-esophageal reflux disease without esophagitis; E03.9 Hypothyroidism, unspecified; Z79.899 Other long term (current) drug therapy
CPT/HCPCS: 36415; 71045; 74019; 80053; 81001; 82728; 83605; 83615; 83735; 83880; 84484; 85025; 85379; 85610; 85730; 86140; 93005; 96374; 99285; J2405; J7030; J7050; M0239; Q0239; U0002; 93010; 99284

== ENCOUNTER 2020-12-17 07:27 | Day surgery (SDC) | payer MEDICARE, OTHER ==
--- NOTE | 2020-12-14 10:15 | PCM.PREANE ---
Preanesthetic Assessment - Procedure Proposed Procedure: Diagnostic EGD - Anesthesia/Transfusion/Family Hx Anesthesia History: Prior Anesthesia Without Reaction Family History of Anesthesia Reaction: No Transfusion History: No Prior Transfusion(s) Intubation History: Unknown - Review of Systems General: Fatigue Pulmonary: No Symptoms (Covid +: October 2020: GI symptoms/quit smoking in ), Shortness of Breath (orthopnea, chronic in nature: history of monoxide exposure in s sob ever since: history of diffusion defect in 2019 per PFT's/ 2020 PFT's normal) Cardiovascular: No Symptoms (HTN, CAD, elevated cholesterol), Chest Pain (History of [place]/2010 stents placed times 3.), Palpitations, Dyspnea on Exertion (chronic), Edema (history of pedal edema:), Lightheadedness Gastrointestinal: No Symptoms (GERD), Decreased Appetite, Difficulty Swallowing (pills on occasion.) Neurological: No Symptoms (back pain), Headache (history of tension headaches) Other: Reports: Easy Bruising, Thyroid Problems (hypothyroid), Sinus Problem (Hi story of rhinorhea) - Physical Assessment NPO Status Date: 12/16/20 NPO Status Time: 22:00 Vital Signs: HR:63 Sat:97% Temp:97.2 Resp:16 B/P:149/69 Height: 1.78 m Weight: 67 kg ASA Class: 3 Mental Status: Alert & Oriented x3 Airway Class: Mallampati = 2 Dentition: Reports: Normal Dentition, Dentures, Implants (bottom), Caries Thyro-Mental Finger Breadths: 3 Mouth Opening Finger Breadths: 3 ROM/Head Extension: Full Lungs: Clear to Auscultation, Normal Respiratory Effort Cardiovascular: Regular Rate, Regular Rhythm, No Murmurs - Lab Values: All labs reviewed and noted and within acceptable ranges to proceed with scheduled procedure. 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 - Allergies Allergies/Adverse Reactions: Allergies Allergy/AdvReac Type Severity Reaction Status Date / Time No Known Allergies Allergy Verified 12/16/20 13:43 - Anesthesia Plan Pre-Op Medication Ordered: Beta Madi Beta Madi: Metoprolol Med Last Dose Date: 12/17/20 Med Last Dose Time: 05:30 - Acknowledgements Anesthesia Type Planned: MAC Pt an Appropriate Candidate for the Planned Anesthesia: Yes Alternatives and Risks of Anesthesia Discussed w Pt/Guardian: Yes Pt/Guardian Understands and Agrees with Anesthesia Plan: Yes PreAnesthesia Questionnaire HEENT History: Reports: Cataract, Hard of Hearing, Impaired Vision Other HEENT History: wears glasses, has hearing aids, dental implant Cardiovascular History: Reports: CAD, High Cholesterol, Hypertension Other Cardiovascular History: chest pain, coronary atherosclerosis Respiratory History: Reports: Bronchitis, Recurrent, SOB, Other (See Below) Other Respiratory History: cough Gastrointestinal History: Reports: GERD Other Gastrointestinal History: abdominal pain, esophageal ulcer, dehydration Other Musculoskeletal History: R hip bursitis Neurological History: Reports: Other (See Below) Other Neuro History: restless leg syndrome Endocrine/Metabolic History: Reports: Hypothyroidism Dermatologic History: Reports: Cellulitis, Other (See Below) Other Dermatologic History: cellulitis and abcess of face, viral warts - Infectious Disease History Infectious Disease History: Reports: Chicken Pox, Measles - Past Surgical History Head Surgeries/Procedures: Reports: None HEENT Surgical History: Reports: Cataract Surgery, Oral Surgery Cardiovascular Surgical History: Reports: Coronary Artery Stent Other Cardiovascular Surgeries/Procedures: stent place. patient does not know location GI Surgical History: Reports: Colonoscopy, EGD Musculoskeletal Surgical History: Reports: Arthroscopic Knee, Other (See Below) Other Musculoskeletal Surgeries/Procedures:: hand surgery Oncologic Surgical History: Reports: None - HOME MEDS Home Medications: Home Meds Levothyroxine 25 mcg PO ACBREAKFAST 04/13/16 [History] Metoprolol Tartrate [Lopressor] 25 mg PO BID 04/13/16 [History] Omeprazole 20 mg PO BID 04/13/16 [History] Arginine 500 mg PO BID 12/16/20 [History] Ascorbate Calcium/Bioflavonoid [Cate-C 1,000 mg Tablet] 1 tab PO BID 12/16/20 [History] Aspirin 81 mg PO DAILY 12/16/20 [History] Beta-Carotene(A) w/C & E/Min [Prosight] 1 tab PO DAILY 12/16/20 [History] Cyanocobalamin (Vitamin B-12) [Vitamin B-12] 1,000 mcg PO DAILY 12/16/20 [History] Fish Oil/Tyler-3 Fatty Acids [Fish Oil 1,000 MG] 1 gm PO DAILY 12/16/20 [History] Garlic 1,000 mg PO DAILY 12/16/20 [History] Indapamide 2.5 mg PO DAILY 12/16/20 [History] Loratadine [Claritin] 10 mg PO DAILY PRN 12/16/20 [History] Losartan [Cozaar] 100 mg PO DAILY 12/16/20 [History] Magnesium Gluconate [Magonate] 27 mg PO DAILY 12/16/20 [History] Multivitamin 1 tab PO DAILY 12/16/20 [History] Potassium Gluconate [Potassium] 99 mg PO DAILY 12/16/20 [History] Pumpkin Seed Extract/Soy Germ [Azo Bladder Control Capsule] 300 mg PO DAILY 12/16/20 [History] Saw [place] 160 mg PO DAILY 12/16/20 [History] Ubidecarenone [Coq-10] 200 mg PO DAILY 12/16/20 [History] - CURRENT (IN HOUSE) MEDS Current Meds: Current Medications Lactated Ringer's (Ringers, Lactated) 1,000 mls @ 125 mls/hr IV ASDIRECTED LISBETH Stop: 12/17/20 23:00 Lidocaine/Sodium Bicarbonate (Buffered Lidocaine 1% In Ns 8.4%) 0.25 ml IDERM ONETIME PRN PRN Reason: Prior to IV Start Stop: 12/17/20 18:00 Sodium Chloride (Saline Flush) 10 ml FLUSH ASDIRECTED PRN PRN Reason: Keep Vein Open Stop: 12/17/20 18:00
[~2020-12-17 07:27] MED LIST changes: +Lidocaine 1% 4 ML ONE; +Lidocaine 1%/Sod Bicarbonate in NS 8.4% 1 ML Syringe IDERM PRN; -Lidocaine 1%/Sod Bicarbonate in NS 8.4% 1 ML Syringe PRN; +Propofol 200 MG/20 ML SDV ONE; +fentaNYL 100 MCG/2 ML SDV ONE
--- NOTE | 2020-12-17 09:06 | PCM48HPAN ---
Post Anesthesia Note - EVALUATION WITHIN 48HRS OF ANESTHETIC Vital Signs in Normal Range: Yes Patient Participated in Evaluation: Yes Respiratory Function Stable: Yes Airway Patent: Yes Cardiovascular Function Stable: Yes Hydration Status Stable: Yes Pain Control Satisfactory: Yes Nausea and Vomiting Control Satisfactory: Yes Mental Status Recovered: Yes Vital Signs: Last Vital Signs Temp 36.2 C 12/17/20 07:30 Pulse 63 12/17/20 07:30 Resp 16 12/17/20 07:30 BP 149/69 H 12/17/20 07:30 Pulse Ox 97 12/17/20 07:30
--- NOTE | 2020-12-17 09:34 | PROC ---
DATE OF OPERATION: 12/17/2020 SURGEON: Elsi Chamberlain MD PREOPERATIVE DIAGNOSIS: Upper abdominal pain including epigastric pain. POSTOPERATIVE DIAGNOSIS: Upper abdominal pain including epigastric pain. PROCEDURE: Esophagogastroduodenoscopy. FINDINGS: Hiatal hernia, small. ANESTHESIA: Monitored anesthesia care. COMPLICATIONS: None. EBL: minimal INDICATIONS AND CONSENT: The patient is an 85-year-old male who started having epigastric pain in October after having COVID. The patient was seen, evaluated, and put on PPI. Pain improved but persistent. Pain was mostly in the epigastrium but also low abdomen. CT scan was done and showed thickening of urinary bladder and some thickening as well of the gallbladder without stones and no other major abnormalities. Because of the persistent abdominal pain despite being months away from COVID infection, endoscopy was recommended including colonoscopy. The patient declined colonoscopy, but he agreed to proceed with an EGD because his pain was mostly in the upper abdomen. Then, risks, benefits, and alternatives were discussed with the patient. Informed consent was obtained. DESCRIPTION OF PROCEDURE: The patient was taken to the procedure room, placed in left lateral decubitus position. A time-out was performed. Monitored anesthesia was induced. Bite block was placed. Olympus endoscope was inserted into the mouth. As we went down, we examined the entirety of the esophagus. Esophagus appeared normal. We entered the stomach and went all the way to the distal second portion of duodenum. This appeared to be normal. The duodenal bulb and the first portion of the duodenum were also normal. The antrum, stomach body, and fundus appeared to be normal. Biopsies with cold forceps were taken in the antrum and stomach body just for histologic examination, and to rule out H pylori. Then, on retroflexion, there was a small polyp, 2 to 3 cm hiatal hernia without any Farhat ulcers. Back into the distal esophagus, the Z-line was at 39 cm, it was regular. There were no signs of esophagitis. We went back into the stomach. Again, there were no major abnormalities in the stomach. Air was suctioned out and the procedure was concluded. Therefore from this exam, there is no clear cause of the patient's epigastric pain. The patient to be discharged home to continue with PPI therapy and follow up in 1 to 2 weeks with Leydi De La Paz for discussion of pathology results. [id number] /[id number] MTDVeronica
[2020-12-17 09:42] VITALS: BP 142/61; PULSE 60
== END 2020-12-17 09:52 | disposition home or self-care (01) ==
LOC: JD.SDS 07:27
PROVIDERS: ATTEND Surgery
DX: K44.9 Diaphragmatic hernia without obstruction or gangrene (principal); K82.8 Other specified diseases of gallbladder; N40.0 Benign prostatic hyperplasia without lower urinary tract symptoms; N28.1 Cyst of kidney, acquired; N32.3 Diverticulum of bladder; I70.0 Atherosclerosis of aorta; M51.36 Other intervertebral disc degeneration, lumbar region; I25.10 Atherosclerotic heart disease of native coronary artery without angina pectoris; R91.8 Other nonspecific abnormal finding of lung field; E03.9 Hypothyroidism, unspecified; I10 Essential (primary) hypertension; I25.2 Old myocardial infarction; Z86.16 Personal history of COVID-19; Z79.899 Other long term (current) drug therapy; Z87.891 Personal history of nicotine dependence
CPT/HCPCS: 43239; 88305; J2704; J3010; J7120; 00731

== ENCOUNTER 2021-11-11 12:12 | Emergency (ER) | payer MEDICARE, OTHER ==
[2021-11-11] MEDS ORDERED: Sodium Chloride 0.9% 10 ML Syringe FLUSH PRN (12:43)
[2021-11-11] MEDS ORDERED: Furosemide 40 MG/4 ML VIAL IVPUSH ONE (15:09)
[2021-11-11 18:04] VITALS: BP 144/99; PULSE 66
== END 2021-11-11 18:04 | disposition home or self-care (01) ==
LOC: JD.ED 12:12
DX: R07.89 Other chest pain (principal); I25.10 Atherosclerotic heart disease of native coronary artery without angina pectoris; E78.00 Pure hypercholesterolemia, unspecified; I10 Essential (primary) hypertension; I25.2 Old myocardial infarction; K21.9 Gastro-esophageal reflux disease without esophagitis; Z79.899 Other long term (current) drug therapy
CPT/HCPCS: 36415; 71045; 80053; 83735; 83880; 84484; 85025; 85610; 85730; 93005; 96374; 99285; J1940

== ENCOUNTER 2022-03-27 07:53 | Emergency (ER) | payer MEDICARE, OTHER ==
[2022-03-27 08:27] VITALS: BP 163/69; PULSE 88
[2022-03-27] MEDS ORDERED: Sodium Chloride 0.9% 10 ML Syringe FLUSH PRN (08:35)
[2022-03-27 09:30] LABS: ESTIMATED GFR 52 mL/min (>60)
[2022-03-27] MEDS ORDERED: Levofloxacin/Dextrose 5%-Water 750 MG in Premix Bag 1 BAG IV ONE (09:34)
== END 2022-03-27 11:30 | disposition home or self-care (01) ==
LOC: JD.ED 07:53
DX: J18.9 Pneumonia, unspecified organism (principal); R04.2 Hemoptysis; I25.10 Atherosclerotic heart disease of native coronary artery without angina pectoris; E78.00 Pure hypercholesterolemia, unspecified; I10 Essential (primary) hypertension; I25.2 Old myocardial infarction; E03.9 Hypothyroidism, unspecified; Z95.5 Presence of coronary angioplasty implant and graft; Z79.899 Other long term (current) drug therapy; Z79.82 Long term (current) use of aspirin; Z86.16 Personal history of COVID-19
CPT/HCPCS: 36415; 71250; 80053; 83735; 83880; 84484; 85025; 85610; 85730; 86140; 93005; 96365; 99284; J1956; J3490; 93010

== ENCOUNTER 2022-11-18 13:58 | Emergency (ER) | payer MEDICARE, OTHER ==
[2022-11-18 14:25] VITALS: BP 180/123; PULSE 91
[2022-11-18] MEDS ORDERED: Sodium Chloride 0.9% 500 ML IV ONE (17:57)
[2022-11-18] MEDS ORDERED: traMADol 50 MG Tab PO ONE (19:03)
== END 2022-11-18 19:34 | disposition home or self-care (01) ==
LOC: JD.ED 13:58
DX: S22.41XA Multiple fractures of ribs, right side, initial encounter for closed fracture (principal); I49.9 Cardiac arrhythmia, unspecified; I10 Essential (primary) hypertension; I25.2 Old myocardial infarction; E78.00 Pure hypercholesterolemia, unspecified; I25.10 Atherosclerotic heart disease of native coronary artery without angina pectoris; K21.9 Gastro-esophageal reflux disease without esophagitis; Z79.82 Long term (current) use of aspirin; E03.9 Hypothyroidism, unspecified; Z79.899 Other long term (current) drug therapy; W18.2XXA Fall in (into) shower or empty bathtub, initial encounter
CPT/HCPCS: 36415; 71250; 80053; 82550; 83735; 84484; 85025; 86140; 93005; 96360; 99284; A9270; J7030; 93010

== ENCOUNTER 2022-12-06 05:19 | Emergency (ER) | payer MEDICARE, OTHER ==
[2022-12-06 05:42] VITALS: BP 136/81; PULSE 99
[2022-12-06] MEDS ORDERED: Polyethylene Glycol/Electrolytes 4,000 ML Bottle PO ONE (08:02)
[2022-12-06] MEDS ORDERED: Lactated Ringers 500 ML IV ONE (09:23)
== END 2022-12-06 12:04 | disposition home or self-care (01) ==
LOC: JD.ED 05:19
DX: K56.41 Fecal impaction (principal); I25.10 Atherosclerotic heart disease of native coronary artery without angina pectoris; I10 Essential (primary) hypertension; I25.2 Old myocardial infarction; K21.9 Gastro-esophageal reflux disease without esophagitis; E03.9 Hypothyroidism, unspecified; Z91.048 Other nonmedicinal substance allergy status; Z79.82 Long term (current) use of aspirin; Z79.899 Other long term (current) drug therapy
CPT/HCPCS: 36415; 74176; 80053; 81001; 83690; 85025; 99284; A9270; 99283

== ENCOUNTER 2023-11-19 07:13 | Emergency (ER) | payer MEDICARE, OTHER ==
[2023-11-19 08:22] LABS: BASOPHILS ABSOLUTE AUTO 0.1 K/mm3 (0.0-0.2); BASOPHILS PERCENT AUTO 0.7 % (0.0-1.0); EOSINOPHILS ABSOLUTE AUTO 0.3 K/mm3 (0.0-0.4); EOSINOPHILS PERCENT AUTO 4.5 % (0.0-6.0); HEMATOCRIT 40.9 % (42.0-52.0); HEMOGLOBIN 13.4 gm/dl (14.0-18.0); IMMATURE GRAN ABSOLUTE AUTO 0.02 K/mm3 (0.00-0.05); IMMATURE GRAN PERCENT AUTO 0.3 % (0.0-0.4); LYMPHOCYTES ABSOLUTE AUTO 0.8 K/mm3 (1.0-4.8); LYMPHOCYTES PERCENT AUTO 10.2 % (24.0-44.0); MEAN CORPUSCULAR HEMOGLOBIN 32.8 pg (28.0-32.0); MEAN CORPUSCULAR HGB CONC 32.8 g/dl (32.0-36.0); MEAN PLATELET VOLUME 9.2 fl (9.4-12.4); MONOCYTES ABSOLUTE AUTO 0.5 K/mm3 (0.0-0.8); MONOCYTES PERCENT AUTO 5.9 % (0.0-8.0); NEUTROPHILS ABSOLUTE AUTO 5.9 K/mm3 (1.8-7.7); NEUTROPHILS PERCENT AUTO 78.4 % (41.0-71.0); PLATELET COUNT,PLT 139 K/mm3 (150-400); RED BLOOD CELL COUNT 4.09 M/mm3 (4.52-5.90); WHITE BLOOD CELL COUNT,WBC 7.57 K/mm3 (3.9-11.3)
[2023-11-19 08:53] LABS: ALBUMIN 3.3 g/dl (3.4-5.0); ANION GAP 12.1 (5-15); BILIRUBIN TOTAL 0.9 mg/dL (0.2-1.0); BUN/CREATININE RATIO 20.8 (14-18); CREATININE 1.3 mg/dL (0.7-1.3); EST CRCL DRUG DOSING (CG) 37.09 mL/min; POTASSIUM,K 4.1 mEq/L (3.5-5.1); PROTEIN TOTAL,TP 6.5 g/dl (6.4-8.2)
[2023-11-19 09:02] LABS: APPEARANCE,URINE CLEAR (Clear); BILIRUBIN,URINE NEGATIVE (Negative); COLOR,URINE YELLOW (Yellow); GLUCOSE,URINE NEGATIVE (Negative); KETONES,URINE NEGATIVE (Negative); LEUKOCYTE ESTERASE,URINE TRACE (Negative); NITRITE,URINE NEGATIVE (Negative); OCCULT BLOOD,URINE NEGATIVE (Negative); PROTEIN,URINE NEGATIVE (Negative)
[2023-11-19 09:13] LABS: RBC,URINE 0-5 /hpf (0-5)
[2023-11-19 09:14] LABS: BACTERIA,URINE FEW /hpf (FEW); EPITHELIAL CELLS,URINE 0-5 /hpf (0-5); MUCUS,URINE FEW /hpf (FEW)
[2023-11-19] MEDS ORDERED: cefTRIAXone 1 GM in Sodium Chloride 0.9% 100 ML IV ONE (10:32)
[2023-11-19 11:04] VITALS: BP 122/74; PULSE 69
== END 2023-11-19 11:26 | disposition home or self-care (01) ==
LOC: JD.ED 07:13
DX: S12.390A Other displaced fracture of fourth cervical vertebra, initial encounter for closed fracture (principal); N39.0 Urinary tract infection, site not specified; I10 Essential (primary) hypertension; I25.10 Atherosclerotic heart disease of native coronary artery without angina pectoris; I25.2 Old myocardial infarction; K21.9 Gastro-esophageal reflux disease without esophagitis; E03.9 Hypothyroidism, unspecified; Z79.82 Long term (current) use of aspirin; Z79.899 Other long term (current) drug therapy; Z86.16 Personal history of COVID-19; Z91.048 Other nonmedicinal substance allergy status
CPT/HCPCS: 36415; 70450; 71045; 72125; 72128; 72131; 80053; 81001; 82550; 84484; 85025; 93005; 96365; 99284; J0696; J3490; 93010